=== PATIENT | female | born 1955 | race Caucasian/White ===

== ENCOUNTER 2017-05-04 09:18 | Outpatient (CLI) | payer MEDICAID ==
[~2017-05-04 09:18] MED LIST: FLUO20CA39 PO; HYDR-565 PO; PREVCR VG
[2017-05-04 09:22] VITALS: BP 118/75
== END 2017-05-04 10:25 | disposition home or self-care (01) ==
LOC: ORTHO 09:18
PROVIDERS: ATTEND Nurse Practitioner Family
DX: S52.124D Nondisplaced fracture of head of right radius, subsequent encounter for closed fracture with routine healing (principal); F32.9 Major depressive disorder, single episode, unspecified; N18.9 Chronic kidney disease, unspecified; Z88.2 Allergy status to sulfonamides; Z60.2 Problems related to living alone; Z72.89 Other problems related to lifestyle; W01.0XXD Fall on same level from slipping, tripping and stumbling without subsequent striking against object, subsequent encounter
CPT/HCPCS: 73070

== ENCOUNTER 2017-05-20 09:41 | Outpatient (CLI) | payer MEDICAID ==
[~2017-05-20] VITALS: Ht 172.7 cm; Wt 76.5 kg
[2017-05-20 09:40] VITALS: BP 120/90
[2017-05-20 10:28] VITALS: BP 120/90
== END 2017-05-20 10:30 | disposition home or self-care (01) ==
LOC: ORTHO 09:41
PROVIDERS: ATTEND Nurse Practitioner Family
DX: S52.124D Nondisplaced fracture of head of right radius, subsequent encounter for closed fracture with routine healing (principal); W01.0XXA Fall on same level from slipping, tripping and stumbling without subsequent striking against object, initial encounter; Y92.85 Railroad track as the place of occurrence of the external cause
CPT/HCPCS: 99215

== ENCOUNTER 2017-06-22 08:36 | Day surgery (SDC) | payer MEDICAID ==
[2017-06-20 10:40] LABS: BASOPHILS % (AUTO) 0.7 % (0-1); EOSINOPHILS # (AUTO) 0.1 X10'3 (0-0.9); EOSINOPHILS % (AUTO) 2.9 % (0-6); LYMPHOCYTES # (AUTO) 2.5 X10'3 (1.1-4.8); LYMPHOCYTES % (AUTO) 47.7 % (21-51); MEAN CORPUSCULAR HEMOGLOBIN 30.7 PG (27.0-31.0); MEAN CORPUSCULAR HGB CONC 34.7 % (33.0-36.5); MEAN CORPUSCULAR VOLUME 88.4 FL (78-98); MEAN PLATELET VOLUME 8.1 FL (7.4-10.4); MONOCYTES # (AUTO) 0.3 X10'3 (0-0.9); MONOCYTES % (AUTO) 6.5 % (2-12); NEUTROPHILS # (AUTO) 2.2 X10'3 (1.8-7.7); NEUTROPHILS % (AUTO) 42.2 % (42-75); PRE OP HEMATOCRIT 36.9 % (35.0-45.0); PRE OP HEMOGLOBIN 12.8 g/dL (12.0-16.0); PRE OP PLATELET COUNT 234 X10'3 (140-440); RED BLOOD COUNT 4.17 X10'6 (4.20-5.60); RED CELL DISTRIBUTION WIDTH 14.6 % (11.5-14.5)
[2017-06-20 10:56] LABS: ALBUMIN 3.4 G/DL (3.4-5.0); ALBUMIN/GLOBULIN RATIO 1.1 (1.1-1.5); ALKALINE PHOSPHATASE 49 IU/L (46-116); BLOOD UREA NITROGEN 16 MG/DL (7-18); BUN/CREATININE RATIO 12.6 (6.6-38.0); CALCIUM 9.2 MG/DL (8.5-10.1); CHLORIDE 107 MMOL/L (99-107); CREATININE 1.27 MG/DL (0.40-0.90); PRE OP ALT 19 U/L (30-65); PRE OP ANION GAP 8 (8-16); PRE OP AST 18 U/L (10-37); PRE OP BILIRUB, TOTAL 0.4 MG/DL (0.0-1.0); PRE OP GLUCOSE 95 MG/DL (70-104); PRE OP POTASSIUM 3.6 MMOL/L (3.4-5.1); PRE OP SODIUM 143 MMOL/L (135-145); TOTAL CARBON DIOXIDE 28.3 MMOL/L (24-32); TOTAL PROTEIN 6.6 G/DL (6.4-8.2); eGFR 43 ML/MIN
[~2017-06-22] VITALS: Ht 172.7 cm; Wt 76.5 kg
[~2017-06-22 08:36] MED LIST changes: +FLUT16SP2 BOTHNARES; -HYDR-565 PO; +LORA10TA7 PO; -PREVCR VG; +cefazolin/dext.iso 2gm/50ml 50 ML IV ONE; +clindamycin 600mg/D5W 50ml 50 ML IV ONE; +famotidine 20mg tablet PO ONE; +ringers solution, lacted 1,000 ML IV SCH
[2017-06-22 08:45] VITALS: BP 119/88
[2017-06-22] MEDS ORDERED: LIDOcaine 1% (10mg/ml) 2ml vial ONE (09:35)
[2017-06-22] MEDS ORDERED: BUPIVAcaine/PF 2.5 mg/ml (0.25%) 30ml vial ONE (11:08)
[2017-06-22] MEDS ORDERED: ceFAZolin 1000mg inj ONE (11:08)
[2017-06-22] MEDS ORDERED: ROPIVAcaine 0.5% (5mg/ml) 30ml vial ONE (11:17)
[2017-06-22] MEDS ORDERED: fentaNYL/PF 50MCG/1 ML 2ML syringe ONE (11:20)
[2017-06-22] MEDS ORDERED: sevoflurane 250ml liquid IH ONE (11:21)
[2017-06-22] MEDS ORDERED: cloNIDine hcl/PF 100mcg/ml inj ONE (11:30)
[2017-06-22] MEDS ORDERED: meperidine/PF 50mg/ml syringe IV PRN ×3 (12:05)
[2017-06-22] MEDS ORDERED: morphine 2 MG/ML inj. syringe IV PRN ×2 (12:05)
[2017-06-22] MEDS ORDERED: ondansetron/PF 4mg/2ml inj IV PRN (12:05)
[2017-06-22] MEDS ORDERED: ringers solution, lacted 1,000 ML IV SCH (12:05)
[2017-06-22] MEDS ORDERED: proCHLORperazine 10 MG/2 ml inj IV PRN (12:05)
[2017-06-22] MEDS ORDERED: propofol inj 20 ML IV ONE (12:46)
[2017-06-22 12:55] VITALS: BP 127/80
[2017-06-22] MEDS ORDERED: HYDROcodone/acetaminophen 10/325mg tab PO ONE (13:45)
== END 2017-06-22 14:15 | disposition home or self-care (01) ==
LOC: PAS 08:36
PROVIDERS: ATTEND Orthopaedic Surgery
DX: T84.84XA Pain due to internal orthopedic prosthetic devices, implants and grafts, initial encounter (principal); G89.18 Other acute postprocedural pain; M65.831 Other synovitis and tenosynovitis, right forearm; Z79.899 Other long term (current) drug therapy; Z88.6 Allergy status to analgesic agent; Z88.2 Allergy status to sulfonamides; Z88.1 Allergy status to other antibiotic agents; F32.89 Other specified depressive episodes; N18.9 Chronic kidney disease, unspecified; Z90.710 Acquired absence of both cervix and uterus; Z98.890 Other specified postprocedural states; Y83.1 Surgical operation with implant of artificial internal device as the cause of abnormal reaction of the patient, or of later complication, without mention of misadventure at the time of the procedure
CPT/HCPCS: 20680; 24365; 36415; 80053; 85025; 93005; A4565; A6449; J0690; J0735; J2175; J2704; J2795; J3010; J3490; J7120; A7000

== ENCOUNTER 2017-07-01 14:10 | Outpatient (CLI) | payer MEDICAID ==
[~2017-07-01 14:10] MED LIST changes: -cefazolin/dext.iso 2gm/50ml 50 ML IV ONE; -clindamycin 600mg/D5W 50ml 50 ML IV ONE; -famotidine 20mg tablet PO ONE; -ringers solution, lacted 1,000 ML IV SCH
[2017-07-01 14:19] VITALS: BP 150/90
== END 2017-07-01 14:40 | disposition home or self-care (01) ==
LOC: ORTHO 14:10
PROVIDERS: ATTEND Nurse Practitioner Family
DX: S52.121A Displaced fracture of head of right radius, initial encounter for closed fracture (principal); F32.9 Major depressive disorder, single episode, unspecified; N18.9 Chronic kidney disease, unspecified; Z88.1 Allergy status to other antibiotic agents; Z88.2 Allergy status to sulfonamides; Z98.890 Other specified postprocedural states; Z72.89 Other problems related to lifestyle; W01.0XXA Fall on same level from slipping, tripping and stumbling without subsequent striking against object, initial encounter; Y93.89 Activity, other specified; Y92.89 Other specified places as the place of occurrence of the external cause; Y99.8 Other external cause status
CPT/HCPCS: 99213

== ENCOUNTER 2017-07-07 11:37 | Outpatient (CLI) | payer MEDICAID | END 2017-07-07 12:15 | disposition home or self-care (01) | LOC: ORTHO 11:37 | PROVIDERS: ATTEND Nurse Practitioner Family | DX: S52.124D Nondisplaced fracture of head of right radius, subsequent encounter for closed fracture with routine healing (principal); N18.9 Chronic kidney disease, unspecified; F32.9 Major depressive disorder, single episode, unspecified; Z88.2 Allergy status to sulfonamides; Z88.1 Allergy status to other antibiotic agents; Z72.89 Other problems related to lifestyle; X58.XXXD Exposure to other specified factors, subsequent encounter | CPT/HCPCS: 29105; 73080; 99213; A6449 ==

== ENCOUNTER 2017-07-14 11:50 | Outpatient (CLI) | payer MEDICAID ==
[2017-07-14 11:54] VITALS: BP 115/69
== END 2017-07-14 13:00 | disposition home or self-care (01) ==
LOC: ORTHO 11:50
PROVIDERS: ATTEND Nurse Practitioner Family
DX: S52.124D Nondisplaced fracture of head of right radius, subsequent encounter for closed fracture with routine healing (principal); F32.9 Major depressive disorder, single episode, unspecified; N18.9 Chronic kidney disease, unspecified; Z88.1 Allergy status to other antibiotic agents; Z88.2 Allergy status to sulfonamides; Z60.2 Problems related to living alone; W01.0XXD Fall on same level from slipping, tripping and stumbling without subsequent striking against object, subsequent encounter
CPT/HCPCS: 99213

== ENCOUNTER 2017-09-08 13:41 | Outpatient (CLI) | payer MEDICAID | END 2017-09-08 14:15 | disposition home or self-care (01) | LOC: ORTHO 13:41 | PROVIDERS: ATTEND Nurse Practitioner Family | DX: S52.121D Displaced fracture of head of right radius, subsequent encounter for closed fracture with routine healing (principal); F32.9 Major depressive disorder, single episode, unspecified; N18.9 Chronic kidney disease, unspecified; Z88.2 Allergy status to sulfonamides; Z88.5 Allergy status to narcotic agent; W01.0XXD Fall on same level from slipping, tripping and stumbling without subsequent striking against object, subsequent encounter | CPT/HCPCS: 99213 ==

== ENCOUNTER 2017-10-06 11:43 | Outpatient (CLI) | payer MEDICAID ==
[2017-10-06 11:55] VITALS: BP 129/93
== END 2017-10-06 12:46 | disposition home or self-care (01) ==
LOC: ORTHO 11:43
PROVIDERS: ATTEND Nurse Practitioner Family
DX: S52.121G Displaced fracture of head of right radius, subsequent encounter for closed fracture with delayed healing (principal); N18.9 Chronic kidney disease, unspecified; F32.9 Major depressive disorder, single episode, unspecified; Z88.2 Allergy status to sulfonamides; Z88.5 Allergy status to narcotic agent; Z88.8 Allergy status to other drugs, medicaments and biological substances; Z60.2 Problems related to living alone; Z72.89 Other problems related to lifestyle; X58.XXXD Exposure to other specified factors, subsequent encounter
CPT/HCPCS: 99213

== ENCOUNTER 2017-11-24 11:57 | Outpatient (CLI) | payer MEDICAID ==
[2017-11-24 11:59] VITALS: BP 123/81
== END 2017-11-24 12:15 | disposition home or self-care (01) ==
LOC: ORTHO 11:57
PROVIDERS: ATTEND Nurse Practitioner Family
DX: S52.121G Displaced fracture of head of right radius, subsequent encounter for closed fracture with delayed healing (principal); N18.9 Chronic kidney disease, unspecified; Z72.89 Other problems related to lifestyle; Z60.2 Problems related to living alone; F32.9 Major depressive disorder, single episode, unspecified; Z88.2 Allergy status to sulfonamides; Z88.8 Allergy status to other drugs, medicaments and biological substances; W01.0XXD Fall on same level from slipping, tripping and stumbling without subsequent striking against object, subsequent encounter
CPT/HCPCS: 99213

== ENCOUNTER 2018-12-25 12:21 | Emergency (ER) | payer MEDICAID ==
[~2018-12-25] VITALS: Ht 172.7 cm; Wt 74.1 kg
[2018-12-25 12:56] VITALS: BP 102/68
--- NOTE | 2018-12-25 13:37 | NUR ---
Patient states she fell out of her trailer on 01/10/19 and landed on the back of her head. states she was having some neurological symptoms x 4 days, but is a little better now. In addition, patient states that she fell yesterday and strained her right elbow. states she has hx of elbow surgery and cervical fusion in the past and is concerned that she severely injured her neck and elbow with these falls. states that she is having pain between shoulder, especially when she turns her head.
--- NOTE | 2018-12-25 14:04 | NUR ---
PT TO CT VIA WHEELCHAIR WITH TECH
== END 2018-12-25 15:40 | disposition home or self-care (01) ==
LOC: ER 12:21
DX: S06.0X0A Concussion without loss of consciousness, initial encounter (principal); S16.1XXA Strain of muscle, fascia and tendon at neck level, initial encounter; M25.521 Pain in right elbow; G89.29 Other chronic pain; F32.9 Major depressive disorder, single episode, unspecified; F10.99 Alcohol use, unspecified with unspecified alcohol-induced disorder; Z90.710 Acquired absence of both cervix and uterus; Z98.890 Other specified postprocedural states; Z60.2 Problems related to living alone; Z88.5 Allergy status to narcotic agent; Z88.2 Allergy status to sulfonamides; Z88.1 Allergy status to other antibiotic agents; Z88.8 Allergy status to other drugs, medicaments and biological substances; Z79.899 Other long term (current) drug therapy; W01.198A Fall on same level from slipping, tripping and stumbling with subsequent striking against other object, initial encounter; Y93.89 Activity, other specified; Y92.89 Other specified places as the place of occurrence of the external cause; Y99.8 Other external cause status; Y90.9 Presence of alcohol in blood, level not specified
CPT/HCPCS: 70450; 72125; 73080; 99284